=== PATIENT | male | born 1985 | race Caucasian/White ===

== ENCOUNTER 2017-04-02 11:01 | Observation (INO) | payer BC, OTHER ==
[2017-04-02] MEDS ORDERED: ONDANSETRON HCL INJ/PF 4 MG/2 ML SDV ONE (11:27)
[2017-04-02] MEDS ORDERED: ONDANSETRON HCL INJ/PF 4 MG/2 ML SDV IV ONE (11:27)
[2017-04-02] MEDS ORDERED: MORPHINE SULFATE 10 MG/ML INJ IV ONE ×2 (11:27→11:44)
[2017-04-02] MEDS ORDERED: MORPHINE SULFATE 10 MG/ML INJ ONE (11:28)
[2017-04-02 11:51] LABS: ABSOLUTE BASOPHILS # (AUTO) 0.1 10^3/uL (0.0-0.2); ABSOLUTE LYMPHOCYTES (AUTO) 2.5 10^3/uL (0.5-4.7); ABSOLUTE MONOCYTES (AUTO) 1.3 10^3/uL (0.1-1.4); ABSOLUTE NEUT (AUTO) 12.2 10^3/uL (1.7-8.2); BASOPHILS % (AUTO) 0.5 % (0-2); EOSINOPHILS % (AUTO) 0.1 % (0-6); HEMOGLOBIN 13.1 g/dL (13.5-17.0); HGB HCT DIFFERENCE 2.3; LYMPHOCYTES % (AUTO) 15.3 % (13-45); MEAN CORPUSCULAR HEMOGLOBIN 30.8 pg (27.0-33.4); MEAN CORPUSCULAR HGB CONC 35.5 g/dL (32.0-36.0); MEAN CORPUSCULAR VOLUME 87 fl (80-97); MONOCYTES % (AUTO) 8.1 % (3-13); RED BLOOD COUNT 4.27 10^6/uL (4.35-5.55); RED CELL DISTRIBUTION WIDTH 13.3 % (11.5-14.0); WHITE BLOOD COUNT 16.1 10^3/uL (4.0-10.5)
[2017-04-02] MEDS: NORMAL SALINE 1000 ML 1,000 ML IV PRN ×2 (11:53→12:41)
[2017-04-02 11:59] LABS: ALANINE AMINOTRANSFERASE 26 U/L (21-72); ALBUMIN 3.9 g/dL (3.5-5.0); ALKALINE PHOSPHATASE 65 U/L (38-126); ANION GAP 15 (5-19); ASPARTATE AMINO TRANSFERASE 19 U/L (17-59); BILIRUBIN,DIRECT 0.4 mg/dL (0.0-0.4); BILIRUBIN,TOTAL 0.6 mg/dL (0.2-1.3); BLOOD UREA NITROGEN 17 mg/dL (7-20); C-REACTIVE PROTEIN 11.4 mg/L (<10.0); CALCIUM 9.1 mg/dL (8.4-10.2); CARBON DIOXIDE 25 mmol/L (22-30); CHLORIDE 106 mmol/L (98-107); CREATINE KINASE 141 U/L (55-170); CREATININE RESULT 0.93 mg/dL (0.52-1.25); GLUCOSE 117 mg/dL (75-110); SODIUM 145.7 mmol/L (137-145); TOTAL PROTEIN 6.3 g/dL (6.3-8.2)
[2017-04-02 12:02] LABS: POTASSIUM 2.2 mmol/L (3.6-5.0)
[2017-04-02] MEDS ORDERED: POTASSIUM CHLORIDE 10 MEQ TABLET.SA PO ONE ×2 (12:20→16:01)
[2017-04-02] MEDS ORDERED: POTASSI CL 40 MEQ/D5-1/2NS 1L 40 MEQ/1,000 ML RTUINJ IV ONE (12:21)
[2017-04-02] MEDS ORDERED: KETOROLAC TROMETHAMINE INJ/PF 30 MG/1 ML SDV IV ONE (12:21)
[2017-04-02 12:23] LABS: ERYTHROCYTE SEDIMENTATION RATE 19 mm/hr (0-15)
[2017-04-02] MEDS ORDERED: METHOCARBAMOL INJ/PF 1000 MG/10 ML SDV IV ONE ×2 (12:23→15:05)
[2017-04-02 12:30] LABS: ADD ON TESTING BLD IN LAB ACKNOWLEDGE
[2017-04-02 12:36] LABS: APPEARANCE,URINE CLEAR; BILIRUBIN,URINE NEGATIVE (NEGATIVE); GLUCOSE, URINE NEGATIVE (NEGATIVE); KETONES,URINE NEGATIVE (NEGATIVE); LEUKOCYTE ESTERASE,URINE NEGATIVE (NEGATIVE); NITRITE,URINE NEGATIVE (NEGATIVE); PROTEIN,URINE NEGATIVE (NEGATIVE); URINE SPECIFIC GRAVITY 1.004; UROBILINOGEN,URINE NEGATIVE mg/dL (<2.0)
[2017-04-02 12:38] LABS: MAGNESIUM 1.8 mg/dL (1.6-2.3)
[2017-04-02 12:52] LABS: URINE BARBITURATES SCREEN NEGATIVE; URINE METHADONE SCREEN NEGATIVE; URINE PHENCYCLIDINE SCREEN NEGATIVE
[2017-04-02 12:58] LABS: URINE OPIATES LOW UNCONFIRMED POSITIVE
[2017-04-02] MEDS ORDERED: HYDROMORPHONE HCL INJ/PF 2 MG/ML AMPULE IV ONE (14:14)
[2017-04-02 15:30] LABS: ANION GAP 12 (5-19); BLOOD UREA NITROGEN 15 mg/dL (7-20); CALCIUM 8.3 mg/dL (8.4-10.2); CARBON DIOXIDE 24 mmol/L (22-30); CHLORIDE 109 mmol/L (98-107); CREATININE RESULT 0.91 mg/dL (0.52-1.25); GLUCOSE 137 mg/dL (75-110); SODIUM 144.7 mmol/L (137-145)
[2017-04-02 16:05] LABS: POTASSIUM 1.9 mmol/L (3.6-5.0)
[2017-04-02] MEDS ORDERED: SPIRONOLACTONE 25 MG TABLET PO ONE (16:17)
--- NOTE | 2017-04-02 16:19 | ER Document Report ---
ED General Pain - General Chief Complaint: Back Pain Stated Complaint: BACK PAIN Time Seen by Provider: 04/02/17 11:15 Notes: Patient says he is having severe muscle cramping, so severe that the pain is too much to allow him to walk. This pain began yesterday. The worst areas in his back. Patient works out regularly and lifts heavy weights and did his last workout Friday. He worked as usual on Friday night. Since he developed these symptoms yesterday, he called upon a friend who had access to IV fluids and gave himself 4 bags of fluid last night. He has had this happen one time before about a couple of years ago and at that time IV fluids administration at home was able to resolve the problem. Patient says his nausea but not vomiting. No diarrhea. Denies headache. Denies any fever. His last workout before his workout on Friday was on Friday. Patient does recall that he was sick last week with a viral sounding illness which was associated with nausea and vomiting and headache and low-grade fever for a day and a half or 2 days, but all the symptoms resolved after that. Patient is not on regular medications for any medical condition. Does not smoke. Only surgeries have been for tonsils. TRAVEL OUTSIDE OF THE [place] IN LAST 30 DAYS: No - Related Data Allergies/Adverse Reactions: No Known Allergies Allergy (Verified 04/02/17 12:09) Home Medications: Current Home Medications No Home Medications 04/02/17 [History] Past Medical History - Social History Smoking Status: Never Smoker Chew tobacco use (# tins/day): No Frequency of alcohol use: None Drug Abuse: None Family History: Reviewed & Not Pertinent - Past Medical History Cardiac Medical History: Denies: Hx Coronary Artery Disease Endocrine Medical History: Denies: Hx Diabetes Mellitus Type 1, Hx Diabetes Mellitus Type 2 Musculoskeltal Medical History: Denies Hx Arthritis Past Surgical History: Reports: Hx Tonsillectomy Review of Systems - Review of Systems Notes: REVIEW OF SYSTEMS: CONSTITUTIONAL : Denies fever. EENT: Denies eye, ear, nose or mouth or throat pain or other symptoms. No sore throat. CARDIOVASCULAR: Denies chest pain. RESPIRATORY: Denies cough, chest congestion, or shortness of breath. GASTROINTESTINAL: Denies abdominal pain or nausea, vomiting, or diarrhea. GENITOURINARY: Denies difficulty or painful urinating, urinary frequency, blood in urine. MUSCULOSKELETAL: See HPI. SKIN: Denies rash or skin lesions. NEUROLOGICAL: Denies LOC or altered mental status. Denies headache. Denies sensory loss or motor deficits. ALL OTHER SYSTEMS REVIEWED AND NEGATIVE. Physical Exam - Vital signs Vitals: Pulse Ox 100 04/02/17 11:24 - Notes Notes: PHYSICAL EXAMINATION: GENERAL: Well-appearing, in no acute distress. HEAD: Atraumatic, normocephalic. EYES: Pupils equal round and reactive to light, extraocular movements intact. ENT: oropharynx clear without exudates. Moist mucous membranes. NECK: Normal range of motion, supple. LUNGS: Breath sounds clear and equal bilaterally. HEART: Regular rate and rhythm without murmurs. ABDOMEN: Soft, nontender. No guarding or rebound. BACK: No tenderness throughout entire back. EXTREMITIES: Palpation of extremities and other areas of the body reveals some pitting edema of the lower extremities, +1/4, but nothing that suggests any deep venous thromboses. Compression of the muscles does not seem to cause a lot of pain, but stretching of the muscles does cause considerable pain. Patient is unable to stand without severe pain. NEUROLOGICAL: Normal speech, unable to walk because of pain. Normal sensory, motor, and reflex exams. Patient does not have the loss of use of any of his extremities, no paralysis. Awake, alert, and oriented x3. Cranial nerves normal. PSYCH: Normal mood, normal affect. SKIN: Warm, dry, no rashes. Course - Re-evaluation Re-evalutation: 04/02/17 16:27 Initially, patient was given 2 L of saline. Then, after the patient's potassium came back at 2.2, he was given 40 mEq of KCl p.o. and a bag of D5 and half-normal saline with 40 mEq of KCl at 200 mL/h. At various times, patient received 5 mg of morphine IV 2 for pain. He also was given Robaxin 1000 mg IV for muscle relaxation. He was given 30 mg of Toradol IV. Also given Zofran IV. Given Dilaudid 2 mg for pain. Patient's symptoms persisted although somewhat better after medications. I ordered a repeat Chem-7 and patient's potassium was down to 1.9. I spoke with Dr. Hearn, hospitalist missing persons investigator, and they will admit the patient to telemetry for observation and further care. - Vital Signs Vital signs: Temp Pulse Resp BP Pulse Ox 98.2 F 15 120/55 L 94 04/02/17 13:01 04/02/17 16:01 04/02/17 16:01 04/02/17 16:01 - Laboratory Result Diagrams: 04/02/17 11:42 04/02/17 15:10 Laboratory results interpreted by me: 04/02/17 04/02/17 04/02/17 11:17 11:42 15:10 WBC 16.1 H RBC 4.27 L Hgb 13.1 L Hct 37.0 L Absolute Neutrophils 12.2 H ESR 19 H Sodium 145.7 H Potassium 2.2 L* 1.9 L* Chloride 109 H Glucose 117 H 137 H Calcium 8.3 L C-Reactive Protein 11.4 H Discharge - Discharge Clinical Impression: Myalgia, Hypokalemia Condition: Stable Disposition: ADMITTED OBSERVATION Admitting Provider: Hospitalist Unit Admitted: Telemetry
[2017-04-02] MEDS ORDERED: ONDANSETRON 4 MG TAB.RAPDIS PO PRN (16:54)
[2017-04-02] MEDS ORDERED: ACETAMINOPHEN 325 MG TABLET PO PRN (16:54)
[2017-04-02] MEDS ORDERED: ONDANSETRON HCL INJ/PF 4 MG/2 ML SDV IV PRN (16:54)
--- NOTE | 2017-04-02 17:15 | PDOC H&P ---
History of Present Illness Admission Date/PCP: 04/02/17 16:33 Patient complains of: Weakness and muscle pain. History of Present Illness: DELMAR SOLORIO JR is a 31 year old male with no significant past medical history who presents with generalized weakness. The patient reports that one week ago he developed some fever and nausea vomiting the last 2 days but was not terribly severe. Patient felt better after that and then lifted weights 3 days ago. Patient also worked out on Friday. When he woke up on Friday was having difficulty moving and was generally weak. He has a friend who is in EMS and he was given 4 L of IV fluids by him. Patient reports he felt only slightly better and came in because he woke up today and was still feeling very weak. When he presented he was noted to have a very low potassium of 2.3. He was given IV potassium and it was repeated and it was actually lower at 1.9. Patient reports having generalized weakness and he is unable to walk at this time. He however denies any shortness of breath. He denies any difficulty breathing. Denies any difficulty swallowing. He denies any dietary supplement usage. 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 The patient has no family history of paralysis or electrolyte abnormalities to his knowledge. Past Medical History Cardiac Medical History: Reports: None Pulmonary Medical History: Reports: Asthma - As a child EENT Medical History: Reports: None Neurological Medical History: Reports: None Endocrine Medical History: Reports: None Renal/ Medical History: Reports: None Malignancy Medical History: Reports: None GI Medical History: Reports: None Musculoskeltal Medical History: Reports: None Skin Medical History: Reports: None Psychiatric Medical History: Reports: None Traumatic Medical History: Reports: None Hematology: Reports: None Infectious Medical History: Reports: None Past Surgical History Past Surgical History: Reports: Tonsillectomy Social History Information Source: Patient Lives with: Family Smoking Status: Never Smoker Frequency of Alcohol Use: Rare Hx Recreational Drug Use: No Drugs: None Hx Prescription Drug Abuse: No - Advance Directive Resuscitation Status: Full Code Family History Family History: Father is 52 and alive. History of hypertension and diabetes. Mother is 54 alive and has diabetes. Sister is alive and has no health problems. Parental Family History Reviewed: Yes Children Family History Reviewed: No Sibling(s) Family History Reviewed.: Yes Medication/Allergy Allergies/Adverse Reactions: No Known Allergies Allergy (Verified 04/02/17 12:09) Review of Systems Constitutional: ABSENT: chills, fever(s), headache(s), night sweats, weight gain , weight loss Eyes: ABSENT: visual disturbances Ears: ABSENT: hearing changes Cardiovascular: ABSENT: chest pain, dyspnea on exertion, edema, orthropnea, palpitations Respiratory: ABSENT: cough, hemoptysis Gastrointestinal: ABSENT: abdominal pain, constipation, diarrhea, hematemesis, hematochezia, nausea, vomiting Genitourinary: ABSENT: dysuria, hematuria Musculoskeletal: PRESENT: as per HPI, muscle weakness. ABSENT: joint swelling Integumentary: ABSENT: rash, wounds Neurological: PRESENT: weakness - Generalized weakness. ABSENT: abnormal gait, abnormal speech, confusion, dizziness, numbness, syncope Psychiatric: ABSENT: anxiety, depression Endocrine: ABSENT: cold intolerance, heat intolerance, polydipsia, polyuria Hematologic/Lymphatic: ABSENT: easy bleeding, easy bruising Physical Exam Vital Signs: Temp Pulse Resp BP Pulse Ox 98.2 F 15 120/55 L 94 04/02/17 13:01 04/02/17 16:01 04/02/17 16:01 04/02/17 16:01 General appearance: PRESENT: no acute distress, obese Head exam: PRESENT: atraumatic, normocephalic Eye exam: PRESENT: conjunctiva pink, EOMI, PERRLA. ABSENT: scleral icterus Ear exam: PRESENT: normal external ear exam Mouth exam: PRESENT: moist, tongue midline Neck exam: ABSENT: carotid bruit, JVD, lymphadenopathy, thyromegaly Respiratory exam: PRESENT: clear to auscultation sobeida. ABSENT: rales, rhonchi, wheezes Cardiovascular exam: PRESENT: RRR. ABSENT: diastolic murmur, rubs, systolic murmur Vascular exam: PRESENT: normal capillary refill GI/Abdominal exam: PRESENT: normal bowel sounds, soft. ABSENT: distended, guarding, mass, organolmegaly, rebound, tenderness Rectal exam: PRESENT: deferred Extremities exam: ABSENT: calf tenderness, clubbing, pedal edema Neurological exam: PRESENT: alert, awake, oriented to person, oriented to place , oriented to time, oriented to situation, CN II-XII grossly intact, motor sensory deficit - Patient has decreased strength in all motor groups. 2/6 strength. Psychiatric exam: PRESENT: appropriate affect Skin exam: PRESENT: dry, intact, warm. ABSENT: cyanosis, rash Assessment & Plan - Diagnosis (1) Hypokalemia Is this a current diagnosis for this admission?: Yes Plan: The patient has very significant hypokalemia that has led to severe weakness. The patient has not been using any diuretics or other dietary supplements that could cause the hypokalemia. He does relate having a previous episode 2 years ago that responded to IV fluids. These have both occurred after working out and lifting weights. Our differential diagnosis includes hyperaldosteronism. Will check an aldosterone level and go ahead and give Spironolactone now. The patient will be given IV fluids along with potassium p.o. and IV. Patient has no family history but the possibility of periodic paralysis related hypokalemia is considered. Patient did have some GI symptoms with nausea and vomiting 1 week ago but he reports it was only for short period of time and did not involve a significant amount of fluid loss at that time. (2) Myalgia Is this a current diagnosis for this admission?: Yes Plan: This is related to the hypokalemia and suspect that it will completely resolve with treatment of the hypokalemia. - Time Time Spent: 50 to 70 Minutes - Inpatient Certification Medical Necessity: Need For IV Fluids - Plan Summary Plan Summary: We will admit as an observation. I anticipate this require less than a 2 midnight hospital stay.
[2017-04-02] MEDS: POTASSIUM CHLORIDE 10 MEQ TABLET.SA PO SCH ×2 (18:08→21:35)
[2017-04-02] MEDS: POTASSI CL 40 MEQ/NS 1L 1,000 ML IV PRN (18:56)
[2017-04-02] MEDS: HYDROMORPHONE HCL INJ/PF 2 MG/ML AMPULE IV PRN (21:36)
[2017-04-02] MEDS ORDERED: FAMOTIDINE 20 MG TABLET PO SCH (22:00)
--- NOTE | 2017-04-02 23:14 | EKG REPORT ---
SEVERITY:- ABNORMAL ECG - SINUS RHYTHM FIRST DEGREE AV BLOCK BORDERLINE T ABNORMALITIES, DIFFUSE LEADS : Confirmed by: Glenny Mejia 02-Apr-2017 23:14:32
[2017-04-03] MEDS: POTASSI CL 40 MEQ/NS 1L 1,000 ML IV PRN (00:36)
[2017-04-03] MEDS: HYDROMORPHONE HCL INJ/PF 2 MG/ML AMPULE IV PRN (02:48)
[2017-04-03] MEDS: POTASSIUM CHLORIDE 10 MEQ TABLET.SA PO SCH ×2 (02:48→06:30)
[2017-04-03 06:00] LABS: HEMATOCRIT 33.9 % (37.9-51.0); HEMOGLOBIN 12.4 g/dL (13.5-17.0); HGB HCT DIFFERENCE 3.3; MEAN CORPUSCULAR HEMOGLOBIN 31.4 pg (27.0-33.4); MEAN CORPUSCULAR HGB CONC 36.4 g/dL (32.0-36.0); MEAN CORPUSCULAR VOLUME 86 fl (80-97); RED BLOOD COUNT 3.93 10^6/uL (4.35-5.55); RED CELL DISTRIBUTION WIDTH 13.3 % (11.5-14.0); WHITE BLOOD COUNT 9.5 10^3/uL (4.0-10.5)
[2017-04-03 06:21] LABS: ANION GAP 7 (5-19); BLOOD UREA NITROGEN 15 mg/dL (7-20); CARBON DIOXIDE 25 mmol/L (22-30); CHLORIDE 114 mmol/L (98-107); CREATININE RESULT 0.89 mg/dL (0.52-1.25); GLUCOSE 87 mg/dL (75-110); MAGNESIUM 1.9 mg/dL (1.6-2.3); SODIUM 146.3 mmol/L (137-145)
[2017-04-03 06:26] LABS: POTASSIUM 5.2 mmol/L (3.6-5.0)
[2017-04-03 08:10] VITALS: BP 109/66
[2017-04-03] MEDS ORDERED: ONDANSETRON 4 MG TAB.RAPDIS PO PRN (08:30)
[2017-04-03] MEDS ORDERED: ONDANSETRON HCL INJ/PF 4 MG/2 ML SDV IV PRN (08:30)
[2017-04-03] MEDS ORDERED: ENOXAPARIN SODIUM INJ 40 MG/0.4 ML DISP.SYRIN SUBCUT SCH (10:00)
--- NOTE | 2017-04-03 17:22 | PDOC DISCHARGE SUMMARY ---
General - Admit/Disc Date/PCP Admission Date/Primary Care Provider: 04/02/17 16:54 SUZY GORDON MD Discharge Date: 04/03/17 - Discharge Diagnosis (1) Hypokalemia Is this a current diagnosis for this admission?: Yes Summary: Uncertain etiology. It has completely resolved. An aldosterone levels pending at the time of this dictation. (2) Myalgia Is this a current diagnosis for this admission?: Yes - Additional Information Resuscitation Status: Full Code Discharge Diet: Regular Discharge Activity: Activity As Tolerated Home Medications: No Home Medications 04/02/17 History of Present Illness History of Present Illness: DELMAR SOLORIO JR is a 31 year old male with no significant past medical history who presents with generalized weakness. The patient reports that one week ago he developed some fever and nausea vomiting the last 2 days but was not terribly severe. Patient felt better after that and then lifted weights 3 days ago. Patient also worked out on Friday. When he woke up on Friday was having difficulty moving and was generally weak. He has a friend who is in EMS and he was given 4 L of IV fluids by him. Patient reports he felt only slightly better and came in because he woke up today and was still feeling very weak. When he presented he was noted to have a very low potassium of 2.3. He was given IV potassium and it was repeated and it was actually lower at 1.9. Patient reports having generalized weakness and he is unable to walk at this time. He however denies any shortness of breath. He denies any difficulty breathing. Denies any difficulty swallowing. He denies any dietary supplement usage. 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 The patient has no family history of paralysis or electrolyte abnormalities to his knowledge. Hospital Course Hospital Course: 31-year-old gentleman who presented with severe weakness and was found to have a potassium of 1.9. This occurred after working out. The etiology of the hypokalemia was not clear. He had an aldosterone level drawn and the results were pending at the time of the dictation. He was given spironolactone p.o. 1. Patient had complete resolution of his hypokalemia and his weakness all resolved. Was felt that he was stable for discharge to home. He is instructed not to do anymore extreme exertion until the results of his aldosterone is known and follow-up with his primary care doctor. He had no evidence for rhabdomyolysis. Physical Exam Vital Signs: Temp Pulse Resp BP Pulse Ox 97.9 F 80 20 109/66 99 04/03/17 08:32 04/03/17 08:32 04/03/17 08:32 04/03/17 08:32 04/03/17 08:32 Intake & Output 04/02/17 04/03/17 04/04/17 06:59 06:59 06:59 Intake Total 480 Output Total 1275 Balance -795 Weight 117.934 kg General appearance: PRESENT: no acute distress Eye exam: PRESENT: conjunctiva pink. ABSENT: scleral icterus Ear exam: PRESENT: normal external ear exam Mouth exam: PRESENT: moist, tongue midline Neck exam: ABSENT: JVD Respiratory exam: PRESENT: clear to auscultation sobeida. ABSENT: rales, rhonchi, wheezes Cardiovascular exam: PRESENT: RRR. ABSENT: diastolic murmur, rubs, systolic murmur GI/Abdominal exam: PRESENT: normal bowel sounds, soft. ABSENT: distended, guarding, mass, organolmegaly, rebound, tenderness Extremities exam: ABSENT: calf tenderness, clubbing, pedal edema Neurological exam: PRESENT: alert, awake, oriented to person, oriented to place , oriented to time, oriented to situation, CN II-XII grossly intact. ABSENT: motor sensory deficit Psychiatric exam: PRESENT: appropriate affect Skin exam: PRESENT: dry, intact, warm. ABSENT: cyanosis, rash Results Laboratory Results: 04/03/17 05:44 04/03/17 05:44 04/03/17 04/03/17 05:44 05:44 WBC 9.5 RBC 3.93 L Hgb 12.4 L Hct 33.9 L MCV 86 MCH 31.4 MCHC 36.4 H RDW 13.3 Plt Count 209 Sodium 146.3 H Potassium 5.2 H D Chloride 114 H Carbon Dioxide 25 Anion Gap 7 BUN 15 Creatinine 0.89 Est GFR ( Amer) > 60 Est GFR (Non-Af Amer) > 60 Glucose 87 Calcium 8.0 L Magnesium 1.9 Qualifiers [place] BEING DISCHARGED WITH ANY OF THE FOLLOWING DIAGNOSIS?: No Plan Discharge Plan: Follow with primary care doctor in 1-2 weeks. Time Spent: Less than 30 Minutes
== END 2017-04-03 08:45 | disposition home or self-care (01) ==
LOC: ER 11:01 → EEVIPCON 11:01 → EH 16:33 → UNDOADMOB 16:33 → EH 16:54 → 5 20:18
PROVIDERS: ADMIT Internal Medicine; ATTEND Internal Medicine
DX: E87.6 Hypokalemia (principal); M79.1 Myalgia; R26.2 Difficulty in walking, not elsewhere classified; R60.0 Localized edema; Z82.49 Family history of ischemic heart disease and other diseases of the circulatory system; Z83.3 Family history of diabetes mellitus
CPT/HCPCS: 93005; 99284; 96361; 96374; 36415 ×2; 82553; 82088; 82550; 83605; 83735 ×2; 85025; 85027; 85652; 86140; 80048 ×2; 80053; 81001; 84484; 80307; 93010; J3480 ×3; J2800; J1885; J2270; J1170 ×2; J3490; J2405; J7030